=== PATIENT | male | born 1930 | race Caucasian/White ===

== ENCOUNTER 2020-06-05 06:30 | Day surgery (SDC) | payer MEDICARE, MEDICAID ==
[~2020-06-05] VITALS: Ht 182.9 cm; Wt 93.9 kg
[~2020-06-05 06:30] MED LIST: ELIQUIS2.5 MG PO; MULTI-VITAMIN1 EACH PO; VITAMIN C1000 MG PO
--- NOTE | 2020-06-05 08:07 | NUR ---
06/05/20 0807 Karolina Norton 0801-PATIENT ARRIVED TO PACU ON 10L MASK NONAROUSABLE. ORAL AIRWAY IN PLACE. RR EVEN. PLACED ON 6L MASK. ABDOMEN SOFT. IVF INFUSING. VPACED.
--- NOTE | 2020-06-09 11:39 | PATH ---
[facility] [address], [place] [address] Signed SPECIMEN(S): A DUODENUM BULB SPECIMEN(S): B ANTRUM/PYLORUS SPECIMEN(S): C LOWER ESOPHAGUS SPECIMEN(S): D MIDDLE ESOPHAGUS SPECIMEN SOURCE: A. DUODENUM BULB B. ANTRUM/PYLORUS C. LOWER ESOPHAGUS D. MIDDLE ESOPHAGUS CLINICAL HISTORY: Abdominal pain, possible cholecystitis MICROSCOPIC DESCRIPTION: Histologic sections of all submitted blocks are examined by light microscopy. These findings, together with the gross examination, support the pathologic diagnosis. FINAL PATHOLOGIC DIAGNOSIS: A. Duodenum, bulb, biopsy: - Duodenal mucosa with no histopathologic abnormality. - Negative for dysplasia or malignancy. B. Stomach, antrum, biopsy: - Antral mucosa with mild chronic, inactive gastritis. - Negative for Helicobacter organisms on HE stain. - Negative for dysplasia or malignancy. C. Esophagus, lower, biopsy: - Squamous mucosa with minimal chronic inflammation. - Negative for intestinal metaplasia, dysplasia, or malignancy. D. Esophagus, middle, biopsy: - Squamous mucosa with minimal chronic inflammation. - Negative for intestinal metaplasia, dysplasia, or malignancy. NAL:cml:C2NR GROSS DESCRIPTION: Four specimens are received in four containers, labeled "RP." A. The specimen, labeled "RP, duodenal bulb biopsy," is received in formalin and consists of one hooks soft tissue fragment(s) that measure 0.1 cm in greatest dimension. The specimen is entirely submitted in cassette (A1). B. The specimen, labeled "RP, antrum biopsy," is received in formalin and PATIENT NAME: JAYCEE YUN PATHOLOGY DATE OF : [birth year] REPORT #: [id number] PHYSICIAN: RAJ ROBLEDO PCP: FAMILIA DUMONT PA-C REPORT IS CONFIDENTIAL AND NOT TO BE RELEASED WITHOUT AUTHORIZATION [facility] [address], [place] [address] Signed consists of one hooks soft tissue fragment(s) that measure 0.2 cm in greatest dimension. The specimen is entirely submitted in cassette (B1). C. The specimen, labeled "RP, lower esophagus biopsy," is received in formalin and consists of two hooks soft tissue fragment(s) that measure 0.3 cm in greatest dimension. The specimen is entirely submitted in cassette (C1). D. The specimen, labeled "RP, middle esophagus biopsy," is received in formalin and consists of one hooks soft tissue fragment(s) that measure 0.3 cm in greatest dimension. The specimen is entirely submitted in cassette (D1). JS (under the direct supervision of a pathologist) The Gross Description was prepared using a voice recognition system. The report was reviewed for accuracy; however, sound-alike word errors, addition and/or deletions may occur. If there is any question about this report, please contact Client Services. PERFORMING LABORATORY: The technical component was performed by [facility], [address] [place] [id number] ([employer]ric Pattern Grader: Ana Pope MD; CLIA# [id number]). [facility], [address] [address] (CLIA# [id number]). Diagnostician: Zoë Love MD Pathologist Electronically Signed 06/09/2020 Copies: ~ PATIENT NAME: JAYCEE YUN PATHOLOGY DATE OF : [birth year] REPORT #: [id number] PHYSICIAN: RAJ PATHOLOGY PCP: FAMILIA DUMONT PA-C REPORT IS CONFIDENTIAL AND NOT TO BE RELEASED WITHOUT AUTHORIZATION
--- NOTE | 2020-06-10 18:28 | OR ---
[facility] [address] [place], [place] [address] Signed DATE OF OPERATION: 06/05/2020 SURGEON: Eros Hong MD PREOPERATIVE DIAGNOSES: 1. Persistent episodic right upper abdominal pain with negative biliary workup. 2. Multiple medical problems. 3. History of right-sided shingles in the past. POSTOPERATIVE DIAGNOSES: 1. Chronic gastritis. 2. Hiatal hernia with distal esophagitis. PROCEDURE: Esophagogastroduodenoscopy with biopsy. ANESTHESIA: Intravenous sedation, propofol infusion; Eros Kohler CRNA. INDICATION: This markedly debilitated 89-year-old white man has had about 2 months of episodic right upper abdominal pain, which he characterizes as sharp and stabbing. With concern that this may represent biliary disease, gallbladder ultrasound was performed under the direction of Kishan SHARPE, which showed no sign of stones. My evaluation confirmed that he has a history of shingles, which manifest in the right abdomen. The patient has had no signs recently of vesicular changes or skin manifestations of shingles on the right abdomen. Today, he described his episodic pain as tingling in the skin rather than deep within the abdomen. He does not have typical symptoms of postprandial right upper abdominal or epigastric pain, bloating, or fullness. He is not taking PPI medication at this time. He is admitted to undergo upper endoscopy to better characterize his issue considering his biliary workup has been negative including normal CCK-HIDA test and ultrasound. The risks of bleeding, infection, and perforation related to upper endoscopy reviewed with him and his daughter. They understand and wished to proceed. FINDINGS: He had distal esophagitis and a hiatal hernia. There was mild chronic gastritis. The pylorus was normal as was the duodenum. Ulceration and neoplasm proper. CLOtest was negative. Electronically Signed By: EROS HONG MD 06/10/20 1828 PATIENT NAME: JAYCEE YUN OPERATIVE REPORT DATE OF : [birth year] REPORT #: [id number] PHYSICIAN: EROS HONG MD PCP: FAMILIA DUMONT PA-C REPORT IS CONFIDENTIAL AND NOT TO BE RELEASED WITHOUT AUTHORIZATION [facility] [address] [place], [place] [address] Signed DESCRIPTION OF PROCEDURE: The patient was brought to the surgical endoscopy suite room #3 and given intravenous sedation with propofol infusional technique with full cardiopulmonary monitoring by the car escort based on his advanced ASA classification. A bite block was placed. In the semi-recumbent supine position, an Olympus video upper endoscope was passed in the hypopharynx. The vocal cords appeared normal. Scope was advanced to the esophagus and had a somewhat torturous appearance and the distal portion had mild chronic distal esophagitis. The scope was advanced to the stomach, which was insufflated with air. Rugal folds were normal for age. There was mild diffuse chronic gastritis of the body and antrum of the stomach. The pylorus was normal. Scope was passed through into the duodenum, which was normal. Biopsies were taken of the duodenum. The scope was withdrawn and biopsy was then taken of the antrum and body of the stomach for both JUAN and pathologic testing. Retroflexed view confirmed a hiatal hernia. The scope was withdrawn to the distal esophagus. Biopsies were taken of the distal esophageal mucosa and later the mid esophageal mucosa. Scope was then removed and the patient was taken to the recovery room in good condition. CONCLUDING DIAGNOSIS: Mild chronic diffuse gastritis, hiatal hernia, and chronic distal esophagitis. It is uncertain if this would account for his symptoms. Remained somewhat suspicious with a post herpetic neuralgia of the right abdomen rather than biliary disease. We will prescribe Prilosec 20 mg p.o. daily and see him back in 6 weeks and assess his progress. MD CHERIE Tristan/MODL /[id number] cc: ANNEMARIE Garcia Copies: ~ Electronically Signed By: EROS HONG MD 06/10/20 1828 PATIENT NAME: JAYCEE YUN OPERATIVE REPORT DATE OF : [birth year] REPORT #: [id number] PHYSICIAN: EROS HONG MD PCP: FAMILIA DUMONT PA-C REPORT IS CONFIDENTIAL AND NOT TO BE RELEASED WITHOUT AUTHORIZATION
== END 2020-06-05 08:50 | disposition home or self-care (01) ==
LOC: OPS 06:30 → DS 06:30 → OPS 06:45 → DS 06:45 → OPS 08:50
PROVIDERS: Surgery
PROC: 0DB78ZX Excision of Stomach, Pylorus, Via Natural or Artificial Opening Endoscopic, Diagnostic (ICD-10-PCS; 2020-06-05)
PROC: 0DB28ZX Excision of Middle Esophagus, Via Natural or Artificial Opening Endoscopic, Diagnostic (ICD-10-PCS; 2020-06-05)
PROC: 0DB38ZX Excision of Lower Esophagus, Via Natural or Artificial Opening Endoscopic, Diagnostic (ICD-10-PCS; 2020-06-05)
PROC: 0DB98ZX Excision of Duodenum, Via Natural or Artificial Opening Endoscopic, Diagnostic (ICD-10-PCS; principal; 2020-06-05 06:45)
DX: K29.50 Unspecified chronic gastritis without bleeding (principal); K20.9 Esophagitis, unspecified; K44.9 Diaphragmatic hernia without obstruction or gangrene; Z79.899 Other long term (current) drug therapy; Z79.01 Long term (current) use of anticoagulants; Z95.0 Presence of cardiac pacemaker
CPT/HCPCS: 88305; J2704; J7121